=== PATIENT | female | born 1980 | race Caucasian/White ===

== ENCOUNTER 2017-11-05 06:38 | Emergency (ER) | payer MEDICAID ==
[~2017-11-05] VITALS: Ht 162.6 cm; Wt 63.6 kg
[2017-11-05 06:47] VITALS: Ht 162.6 cm; Wt 63.6 kg
[2017-11-05] MEDS ORDERED: STERAPRED DS 1010 MG PO (07:44)
[2017-11-05] MEDS ORDERED: CLEOCIN HCL300 MG PO (07:44)
[2017-11-05 08:08] VITALS: BP 143/89
== END 2017-11-05 08:08 | disposition home or self-care (01) ==
LOC: D.ER 06:38
DX: L03.116 Cellulitis of left lower limb (principal); T36.95XA Adverse effect of unspecified systemic antibiotic, initial encounter; Y92.019 Unspecified place in single-family (private) house as the place of occurrence of the external cause; F17.200 Nicotine dependence, unspecified, uncomplicated